=== PATIENT | female | born 1950 | race Asian ===

== ENCOUNTER 2017-04-16 16:43 | Emergency (ER) | payer SELFPAY ==
[~2017-04-16] VITALS: Ht 152.4 cm; Wt 65.3 kg
[2017-04-16] MEDS ORDERED: KEFLEX500 MG PO (20:40)
[2017-04-16] MEDS ORDERED: ULTRACET1 TABLET PO (20:40)
[2017-04-16 20:53] VITALS: BP 119/73
== END 2017-04-16 20:54 | disposition home or self-care (01) ==
LOC: EME 16:43
DX: S61.211A Laceration without foreign body of left index finger without damage to nail, initial encounter (principal); Y93.G3 Activity, cooking and baking; W26.0XXA Contact with knife, initial encounter
CPT/HCPCS: S0020

== ENCOUNTER 2017-04-24 11:16 | Emergency (ER) | payer SELFPAY ==
[~2017-04-24] VITALS: Ht 157.5 cm; Wt 65.3 kg
[~2017-04-24 11:16] MED LIST: KEFLEX500 MG PO; ULTRACET1 TABLET PO
[2017-04-24 11:23] VITALS: BP 103/56
== END 2017-04-24 14:52 | disposition home or self-care (01) ==
LOC: EME 11:16
DX: S61.211D Laceration without foreign body of left index finger without damage to nail, subsequent encounter (principal); Z48.02 Encounter for removal of sutures
CPT/HCPCS: 99281; 99284